=== PATIENT | male | born 1955 | race African-American/Black ===

== ENCOUNTER → 2016-12-03 | Outpatient (CLI) | payer OTHER ==
[~2016-12-03] MED LIST: NO HOME MEDICATIONS; NORCO 325 MG-7.1 TAB PO; NORVASC 10MG10 MG PO; PRINIVIL10 MG PO; PROTONIX 40MG T40 MG PO; ZESTORETIC 12.51 TA1 PO; ZESTRIL 20MG TA20 MG PO
== END ==
LOC: COL.VAS 09:24
DX: I77.1 Stricture of artery (principal); R94.39 Abnormal result of other cardiovascular function study; I08.0 Rheumatic disorders of both mitral and aortic valves

== ENCOUNTER → 2016-12-24 | Outpatient (CLI) | payer SELFPAY | LOC: COL.CARD 08:04 | DX: I50.9 Heart failure, unspecified (principal); I35.1 Nonrheumatic aortic (valve) insufficiency ==

== ENCOUNTER → 2017-02-08 | Outpatient (CLI) | payer OTHER ==
[2017-02-08 11:53] LABS: HEMATOCRIT 47.2 % (42.0-52.0); HEMOGLOBIN 15.2 g/dl (13.5-18.0); MEAN CELL VOLUME 82 fl (80.0-100.0); MEAN CORPUSCULAR HEMOGLOBIN 26 pg (27.0-31.0); MEAN CORPUSCULAR HGB CONC 32 g/dl (33.0-37.0); MEAN PLATELET VOLUME 10.7 fl (7.4-10.4); PLATELET COUNT 253 K/mm3 (130-400); RED BLOOD COUNT 5.78 M/mm3 (4.20-5.60); WHITE BLOOD COUNT 7.4 K/mm3 (4.8-10.8)
[2017-02-08 12:02] LABS: PH 5 (5-8); SQUAMOUS EPITHELIAL 0-2 /hpf; URINE APPEARANCE Clear; URINE BACTERIA None Seen /hpf; URINE BILIRUBIN Negative (NEGATIVE); URINE BLOOD Negative (NEGATIVE); URINE COLOR Yellow; URINE GLUCOSE Negative (NEGATIVE); URINE KETONE Negative (NEGATIVE); URINE RBC None Seen /hpf; URINE UROBILINOGEN Negative (NEGATIVE); URINE WBC 0-2 /hpf
[2017-02-08 12:09] LABS: ADJUSTED CALCIUM 9.2 mg/dL (8.4-10.2); ALBUMIN 4.4 gm/dL (3.5-5.0); BILIRUBIN,TOTAL 0.8 mg/dL (0.0-1.0); CALCIUM 9.5 mg/dL (8.4-10.2); CREATININE, serum 0.99 mg/dL (0.66-1.25); POTASSIUM 4.3 mmol/L (3.4-5.0); TOTAL PROTEIN 7.9 gm/dL (6.4-8.2)
[2017-02-08 12:39] LABS: PSA-TOTAL 0.35 ng/mL (0-4)
== END ==
LOC: COL.RAD 10:28
DX: I10 Essential (primary) hypertension (principal); M25.512 Pain in left shoulder; M25.561 Pain in right knee; M25.562 Pain in left knee; M54.5 Low back pain
CPT/HCPCS: G0103

== ENCOUNTER 2017-05-15 12:50 | Emergency (ER) | payer OTHER ==
[~2017-05-15] VITALS: Ht 190.5 cm; Wt 93.2 kg
[~2017-05-15 12:50] MED LIST changes: -PROTONIX 40MG T40 MG PO; -ZESTRIL 20MG TA20 MG PO
[2017-05-15 12:52] VITALS: TEMP 97
[2017-05-15 13:12] LABS: BASO # 0.1 (0.0-0.2); BASO % 0.4 % (0.0-2.0); GRAN # 7.2 (1.4-6.5); GRAN % 61.7 % (42.2-75.2); HEMATOCRIT 46.1 % (42.0-52.0); HEMOGLOBIN 15.9 g/dl (13.5-18.0); LYMPH # 3.3 (1.2-3.4); LYMPH % 28.4 % (20.0-51.0); MEAN CELL VOLUME 80 fl (80.0-100.0); MEAN CORPUSCULAR HEMOGLOBIN 28 pg (27.0-31.0); MEAN CORPUSCULAR HGB CONC 35 g/dl (33.0-37.0); MEAN PLATELET VOLUME 10.7 fl (7.4-10.4); MONO # 1.1 (0.1-0.6); MONO % 9.2 % (1.7-9.3); PLATELET COUNT 204 K/mm3 (130-400); RED BLOOD COUNT 5.76 M/mm3 (4.20-5.60); REDCELL DISTRIBUTION WIDTH-CV 16.3 % (11.5-14.5); WHITE BLOOD COUNT 11.7 K/mm3 (4.8-10.8)
[2017-05-15 13:16] LABS: ADJUSTED CALCIUM 8.9 mg/dL (8.4-10.2); ALANINE AMINOTRANSFERASE 52 U/L (21-72); ALBUMIN 4.8 gm/dL (3.5-5.0); ALKALINE PHOSPHATASE 92 U/L (50-136); ANION GAP 16 mmol/L (7-16); BILIRUBIN,TOTAL 1.3 mg/dL (0.0-1.0); BLOOD UREA NITROGEN 31 mg/dL (9-20); CALCIUM 9.5 mg/dL (8.4-10.2); CARBON DIOXIDE 21 mmol/L (22-30); CHLORIDE 98 mmol/L (98-107); CREATINE KINASE 184 U/L (55-170); CREATININE, serum 1.82 mg/dL (0.66-1.25); GLUCOSE 148 mg/dL (74-106); LIPASE 69 U/L (23-300); POTASSIUM 3.4 mmol/L (3.4-5.0); SODIUM 135 mmol/L (137-145)
[2017-05-15 13:23] LABS: PROTHROMBIN TIME 11.3 SECONDS (9.7-12.8)
[2017-05-15 13:27] LABS: B-TYPE NATRIURETIC PEPTIDE 35 pg/mL (0-125)
[2017-05-15 13:28] LABS: TROPONIN-I < 0.012 ng/mL (0.000-0.034)
[2017-05-15] MEDS ORDERED: PROTONIX 40MG T40 MG PO (14:42)
[2017-05-15] MEDS ORDERED: ZESTRIL 20MG TA20 MG PO (14:42)
[2017-05-15 14:51] VITALS: BP 179/88; PULSE 62
== END 2017-05-15 14:53 | disposition home or self-care (01) ==
LOC: COL.ER 12:50
PROVIDERS: Emergency Medicine
DX: R07.89 Other chest pain (principal); R10.13 Epigastric pain; I11.0 Hypertensive heart disease with heart failure; I50.9 Heart failure, unspecified
CPT/HCPCS: J7040

== ENCOUNTER → 2017-05-28 | Outpatient (CLI) | payer MEDICARE ==
[~2017-05-28] MED LIST changes: +PROTONIX 40MG T40 MG PO; +ZESTRIL 20MG TA20 MG PO
[2017-05-28 16:35] LABS: BASO % 0.5 % (0.0-2.0); GRAN # 4.3 (1.4-6.5); GRAN % 58.4 % (42.2-75.2); HEMATOCRIT 39.8 % (42.0-52.0); HEMOGLOBIN 13.3 g/dl (13.5-18.0); LYMPH # 2.4 (1.2-3.4); LYMPH % 33.1 % (20.0-51.0); MEAN CELL VOLUME 84 fl (80.0-100.0); MEAN CORPUSCULAR HEMOGLOBIN 28 pg (27.0-31.0); MEAN CORPUSCULAR HGB CONC 33 g/dl (33.0-37.0); MEAN PLATELET VOLUME 10.2 fl (7.4-10.4); MONO # 0.6 (0.1-0.6); MONO % 7.5 % (1.7-9.3); PLATELET COUNT 209 K/mm3 (130-400); RED BLOOD COUNT 4.74 M/mm3 (4.20-5.60); REDCELL DISTRIBUTION WIDTH-CV 17.2 % (11.5-14.5); WHITE BLOOD COUNT 7.4 K/mm3 (4.8-10.8)
[2017-05-28 16:39] LABS: ALBUMIN 4.1 gm/dL (3.5-5.0); CALCIUM 8.7 mg/dL (8.4-10.2); CREATININE, serum 0.74 mg/dL (0.66-1.25); MAGNESIUM 1.9 mg/dL (1.6-2.3); PHOSPHOROUS 3.4 mg/dL (2.5-4.5); POTASSIUM 3.7 mmol/L (3.4-5.0); TOTAL PROTEIN 6.9 gm/dL (6.4-8.2)
[2017-05-28 17:19] LABS: BILIRUBIN,DIRECT 0.4 mg/dL (0.0-0.4); BILIRUBIN,TOTAL 0.5 mg/dL (0.0-1.0)
== END ==
LOC: COL.LAB 12:32
PROVIDERS: Family Medicine
DX: I10 Essential (primary) hypertension (principal)

== ENCOUNTER → 2017-07-02 | Outpatient (CLI) | payer MEDICARE ==
[2017-07-02 19:11] LABS: ADJUSTED CALCIUM 8.6 mg/dL (8.4-10.2); ALBUMIN 4.4 gm/dL (3.5-5.0); BILIRUBIN,TOTAL 0.4 mg/dL (0.0-1.0); CALCIUM 8.9 mg/dL (8.4-10.2); CREATININE, serum 0.72 mg/dL (0.66-1.25); POTASSIUM 3.4 mmol/L (3.4-5.0); TOTAL PROTEIN 7.1 gm/dL (6.4-8.2)
== END ==
LOC: COL.LAB 11:16
PROVIDERS: Family Medicine
DX: I10 Essential (primary) hypertension (principal)

== ENCOUNTER → 2017-07-23 | Outpatient (CLI) | payer MEDICARE ==
[2017-07-23 14:26] LABS: ADJUSTED CALCIUM 9.2 mg/dL (8.4-10.2); BILIRUBIN,TOTAL 0.8 mg/dL (0.0-1.0); CALCIUM 9.2 mg/dL (8.4-10.2); CREATININE, serum 0.73 mg/dL (0.66-1.25); POTASSIUM 3.6 mmol/L (3.4-5.0); TOTAL PROTEIN 6.5 gm/dL (6.4-8.2)
== END ==
LOC: COL.LAB 10:10
PROVIDERS: Family Medicine
DX: I10 Essential (primary) hypertension (principal)

== ENCOUNTER → 2017-08-06 | Outpatient (CLI) | payer MEDICARE | LOC: COL.VAS 08-02 09:00 | DX: I10 Essential (primary) hypertension (principal) ==

== ENCOUNTER 2017-09-20 06:39 | Day surgery (SDC) | payer MEDICARE ==
[2017-09-20] VITALS (12 sets, daily range): BP systolic 123–177; BP diastolic 76–99; PULSE 52–67; TEMP 97.8
[~2017-09-20] VITALS: Ht 190.5 cm; Wt 88.3 kg
[2017-09-20 07:53] LABS: HEMATOCRIT 39.2 % (42.0-52.0); MEAN CELL VOLUME 83 fl (80.0-100.0); MEAN CORPUSCULAR HEMOGLOBIN 27 pg (27.0-31.0); MEAN CORPUSCULAR HGB CONC 33 g/dl (33.0-37.0); MEAN PLATELET VOLUME 10.4 fl (7.4-10.4); PLATELET COUNT 195 K/mm3 (130-400); RED BLOOD COUNT 4.74 M/mm3 (4.20-5.60); REDCELL DISTRIBUTION WIDTH-CV 13.4 % (11.5-14.5)
[2017-09-20] MEDS ORDERED: TOPROL XL 50MG50 MG PO (07:57)
[2017-09-20] MEDS ORDERED: ASPIRIN 81M81 MG/TA2 PO (07:58)
[2017-09-20] MEDS ORDERED: PROTONIX 40MG T40 MG PO (07:58)
[2017-09-20 07:59] LABS: CREATININE, serum 0.81 mg/dL (0.66-1.25)
[2017-09-20] MEDS ORDERED: APRESOLINE 25MG25 MG PO (07:59)
[2017-09-20] MEDS ORDERED: LIPITOR20 MG PO (08:00)
[2017-09-20] MEDS ORDERED: NORVASC 10MG10 MG PO (08:00)
[2017-09-20] MEDS ORDERED: PRINZIDE 12.5 M1 TA1 PO (08:02)
[2017-09-20] MEDS ORDERED: MOBIC 7.5MG7.5 MG PO (08:03)
[2017-09-20 08:13] LABS: INR 1.1 (0.8-3.0); PROTHROMBIN TIME 12.4 SECONDS (9.7-12.8)
== END 2017-09-20 13:41 | disposition home or self-care (01) ==
LOC: COL.CAR 06:39
PROVIDERS: Radiology Diagnostic Radiology
DX: I10 Essential (primary) hypertension (principal); I25.10 Atherosclerotic heart disease of native coronary artery without angina pectoris; K21.9 Gastro-esophageal reflux disease without esophagitis; Z79.82 Long term (current) use of aspirin
CPT/HCPCS: C1760; C1769; C1887; C1894; J2250; J3010; J7120; Q9967

== ENCOUNTER → 2022-12-07 | Outpatient (CLI) | payer OTHER ==
[~2022-12-07] MED LIST changes: +APRESOLINE 25MG25 MG PO; +ASPIRIN 81M81 MG/TA2 PO; +LIPITOR20 MG PO; +MOBIC 7.5MG7.5 MG PO; +PRINZIDE 12.5 M1 TA1 PO; +TOPROL XL 50MG50 MG PO
== END ==
LOC: COL.RAD 12:20
DX: Z01.89 Encounter for other specified special examinations (principal); M79.89 Other specified soft tissue disorders